=== PATIENT | female | born 1965 ===

== ENCOUNTER 2024-11-17 07:45 | Inpatient (IN) | payer OTHER ==
[~2024-11-17] VITALS: Ht 167.6 cm; Wt 77.1 kg
[~2024-11-17 07:45] MED LIST: COZAAR50 MG PO; FERROUS FUMARA324 MG PO
[2024-11-17 10:57] LABS: HEMOGLOBIN 14.5 g/dL (12.0-15.00); MEAN CELL VOLUME 85.3 fL (80.00-100.00); MEAN CORPUSCULAR HEMOGLOBIN 28.8 pg (27.00-32.0); MEAN CORPUSCULAR HGB CONC 33.8 g/dl (32.0-36.0); PLATELET COUNT 186 K/uL (150-450); RED BLOOD COUNT 5.04 M/uL (4.00-6.00); RED CELL DISTRIBUTION WIDTH 14.5 % (11.5-14.5)
[2024-11-17] MEDS ORDERED: TOPROL XL100 M1 PO (11:15)
[2024-11-17] MEDS ORDERED: CARDURA1 MG PO (11:15)
[2024-11-17] MEDS ORDERED: AVAPRO300 MG PO (11:15)
[2024-11-17 11:16] LABS: PH,URINE 5.5 (5.0-8.0); URINE APPEARANCE Clear; URINE BILIRRUBIN Negative (NEGATIVE); URINE BLOOD Negative; URINE COLOR Yellow; URINE GLUCOSE Negative (NEGATIVE); URINE KETONE Negative (NEGATIVE); URINE LEUKOCYTE Trace; URINE NITRATE Negative; URINE PROTEIN Negative (NEGATIVE); URINE UROBILINOGEN 0.2 E.U./dl
[2024-11-17] MEDS ORDERED: TREXALL5 MG PO (11:16)
[2024-11-17 11:21] VITALS: BP 130/90
[2024-11-17 11:22] LABS: URINE BACTERIA 58.7 uL (0.0-1933); URINE EPITHELIAL CELLS 11.5 uL (0.0-38.8); URINE RBC 7.6 uL (0.0-20.8)
[2024-11-17 11:23] LABS: INR 1.03; PARTIAL THROMBOPLASTIN TIME 28.3 SECONDS (22.0-34.0); PROTHROMBIN TIME 11.2 SECONDS (9.0-11.5); URINE CAST 0.14 uL (0.0-1.40); URINE WBC 1.4 uL (0.0-23.2)
[2024-11-17 11:26] LABS: ALBUMIN 3.6 gm/dL (3.4-5.0); BILIRUBIN TOTAL 0.7 mg/dL (0.3-1.2); CALCIUM 9.4 mg/dL (8.5-10.1); CREATININE SERUM 0.68 mg/dL (0.55-1.02); GFR 88.87; GLOBULINA 3.2 G/DL (2.4-3.5); POTASSIUM 4.23 mEq/L (3.5-5.1); TOTAL PROTEIN 6.8 gm/dL (6.4-8.2)
[2024-11-17] MEDS ORDERED: HYDRODIURIL12.5 MG PO (11:29)
[2024-11-17 11:33] LABS: COVID-19 AG NEGATIVE (NEGATIVE)
[2024-11-22] MEDS ORDERED: CEFAZOLIN SODIUM 1,000 MG VIAL ONE (12:16)
[2024-11-22] MEDS ORDERED: POVIDONE-IODINE 118 ML BOTT TOP ONE (13:49)
[2024-11-22] MEDS ORDERED: MORPHINE SULFATE 4 MG/ML VIAL IV ONE ×2 (17:45→18:15)
[2024-11-22 21:23] VITALS: BP 146/85; O2SAT 97
[2024-11-23] MEDS ORDERED: KETOROLAC TROMETHAMINE 10 MG TABLET PO SCH
[2024-11-23 01:28] VITALS: BP 106/66; O2SAT 100
[2024-11-23 08:00] VITALS: BP 127/78; O2SAT 98
== END 2024-11-23 11:21 | disposition home or self-care (01) | DRG 748 ==
LOC: O/R 11-22 05:57 → SURH 11-22 07:00
PROVIDERS: ADMIT Obstetrics & Gynecology; ATTEND Obstetrics & Gynecology
PROC: 0JQC0ZZ Repair Pelvic Region Subcutaneous Tissue and Fascia, Open Approach (ICD-10-PCS; principal; 2024-11-22 07:00)
DX: N81.11 Cystocele, midline (principal); N81.6 Rectocele